=== PATIENT | female | born 1945 | race African-American/Black ===

== ENCOUNTER 2021-04-11 10:08 | Inpatient (IN) | payer MEDICARE ==
[2021-04-11] MEDS ORDERED: Cefepime 2 GM VIAL ONE (11:13)
[2021-04-11 11:23] LABS: Bilirubin Negative (Negative); Blood, Urine 3+ (Negative); Clarity Turbid (Clear); Glucose, Urine (Dipstick) Normal (Negative); Ketone, Urine Negative (Negative); Leukocyte Negative Leu/uL (Negative); Nitrite Negative (Negative); Protein, Urine (Dipstick) 300 mg/dL (Neg-Trace); RBC/HPF 0-3 HPF (0-3); Specific Gravity, Urine 1.019 (1.002-1.036); Squamous Epithelial 0-3 HPF (0-3); Urobilinogen Normal mg/dL (Less than 2); WBC/HPF None Seen HPF (0-3)
[2021-04-11 11:30] LABS: Bacteria/HPF Rare-Few HPF (None Seen); Renal Epithelial 0-3 HPF (None Seen)
[2021-04-11 11:41] LABS: Band 14 % (5-11); Lymphocytes 7 % (21-51); MDiff Complete? YES; Monocytes 2 % (0-10); Neutrophil 75 % (42-75); Platelet Morphology Comment Appears Adequate; RBC Morphology Normal; Reactive Lymphocytes 2 % (0-10)
[2021-04-11 11:49] LABS: Hemoglobin 13.4 g/dL (12.0-16.0); Mean Corpuscular HGB CONC 32.2 g/dL (32.0-36.0); Mean Corpuscular Hemoglobin 26.8 pg (27.0-31.0); Mean Corpuscular Volume 83.3 fL (78.0-98.0); Mean Platelet Volume 8.9 fL (7.4-10.4); Platelet Count 234 thou/uL (130-400); RBC Distribution Width 12.9 % (11.5-14.5); Red Blood Cell (RBC) Count 5.01 mill/uL (4.20-5.40); White Blood Cell (WBC) Count 14.2 thou/uL (4.8-10.8)
[2021-04-11 12:04] LABS: ALT (SGPT) 69 U/L (8-55); AST (SGOT) 287 U/L (5-34); Albumin 3.7 g/dL (3.4-4.8); Alkaline Phosphatase 93 U/L (40-110); Anion Gap 18 mmol/L (10-20); BUN (Urea Nitrogen) 24 mg/dL (9.8-20.1); Bilirubin, Total 0.7 mg/dL (0.2-1.2); Calc. Creatinine Clearance 0 mL/min (70-130); Calcium 8.7 mg/dL (7.8-10.44); Carbon Dioxide 20 mmol/L (23-31); Chloride 103 mmol/L (98-107); Globulin 4.9 g/dL (2.4-3.5); Glucose 167 mg/dL (83-110); Lipase 32 U/L (8-78); Potassium 3.8 mmol/L (3.5-5.1); Protein, Total 8.6 g/dL (5.8-8.1); Sodium 137 mmol/L (136-145)
[2021-04-11 12:10] LABS: CKMB 55.8 ng/mL (0-6.6)
[2021-04-11] MEDS ORDERED: Aspirin 325 MG TAB ONE (12:25)
[2021-04-11 12:32] LABS: SARS-CoV-2 NAA Rapid Test DETECTED (NotDetected)
[2021-04-11] MEDS ORDERED: Vancomycin 1.5 GRAM/300 ML BAG 1.5 GM in Premix Bag 1 BAG IVPB SCH (12:45)
[2021-04-11] MEDS ORDERED: Guaifenesin DM 100-10/5 ML UDCUP PO PRN (13:31)
[2021-04-11] MEDS ORDERED: Zolpidem Tartrate 5 MG TAB PO PRN (13:31)
[2021-04-11] MEDS ORDERED: hydrALAZINE 20 MG/ML VIAL SLOW IVP PRN (13:31)
[2021-04-11] MEDS ORDERED: Loperamide HCl 2 MG CAP PO PRN (13:31)
[2021-04-11] MEDS ORDERED: Benzonatate 100 MG CAP PO PRN (13:31)
[2021-04-11] MEDS ORDERED: Bisacodyl 10 MG SUPP PR PRN (13:31)
[2021-04-11] MEDS ORDERED: HYDROcodone/Acetaminophen 5/325 mg Tablet PO PRN (13:31)
[2021-04-11] MEDS ORDERED: Ondansetron PF 4 MG/2 ML Vial IVP PRN (13:31)
[2021-04-11] MEDS ORDERED: Sodium Chloride 0.65% Nasal 44 ML BOT EA NARE PRN (13:31)
[2021-04-11] MEDS ORDERED: Loratadine 10 MG TAB PO PRN (13:31)
[2021-04-11] MEDS ORDERED: Hydrocerin (Eucerin) Cream 120 gm Jar TOP PRN (13:31)
[2021-04-11] MEDS ORDERED: Senokot S 8.6-50 MG TAB PO PRN (13:31)
[2021-04-11] MEDS ORDERED: Artificial Tear Sol 15 ML BOT EA EYE PRN (13:31)
[2021-04-11] MEDS ORDERED: Ondansetron ODT 4 MG TAB PO PRN (13:31)
[2021-04-11] MEDS ORDERED: Cepastat Lozenges 1 LOZ PO PRN (13:31)
[2021-04-11] MEDS ORDERED: Calcium Carbonate 500 MG ChewTAB PO PRN (13:31)
[2021-04-11] MEDS ORDERED: Sodium Chloride 0.9% 1,000 ML IV SCH (13:45)
[2021-04-11 14:21] LABS: Lactic Acid 2.2 mmol/L (0.5-2.2)
[2021-04-11 18:14] LABS: Troponin I 0.044 ng/mL (< 0.028)
[2021-04-11 21:31] LABS: Troponin I 0.045 ng/mL (< 0.028)
[2021-04-12] MEDS: Clotrimazole 1% Cream 15 GM TUBE TOP SCH ×3 (00:19→22:37)
[2021-04-12] MEDS ORDERED: Cefepime 1 GM VIAL ONE ×2 (03:00→11:45)
[2021-04-12] MEDS: Cefepime 1 GM in Sodium Chloride 0.9% 100 ML IVPB SCH ×3 (03:05→23:55)
[2021-04-12 05:36] LABS: #Lymphocytes 1.7 thou/uL (1.20-3.40); #Monocytes 1.1 thou/uL (0.11-0.59); #Neutrophils 11.9 thou/uL (1.40-6.50); %Eosinophils 0.1 % (0.0-10.0); %Lymphocytes 11.2 % (21.0-51.0); %Monocytes 7.3 % (0.0-10.0); %Neutrophils 81.3 % (42.0-75.0); Hemoglobin 13.9 g/dL (12.0-16.0); Mean Corpuscular HGB CONC 30.9 g/dL (32.0-36.0); Mean Corpuscular Hemoglobin 25.9 pg (27.0-31.0); Mean Corpuscular Volume 83.7 fL (78.0-98.0); Mean Platelet Volume 8.3 fL (7.4-10.4); Platelet Count 263 thou/uL (130-400); Red Blood Cell (RBC) Count 5.37 mill/uL (4.20-5.40); White Blood Cell (WBC) Count 14.7 thou/uL (4.8-10.8)
[2021-04-12 05:52] LABS: Lactic Acid 2.1 mmol/L (0.5-2.2)
[2021-04-12 05:55] LABS: ALT (SGPT) 87 U/L (8-55); AST (SGOT) 339 U/L (5-34); Albumin 3.5 g/dL (3.4-4.8); Alkaline Phosphatase 87 U/L (40-110); Anion Gap 18 mmol/L (10-20); BUN (Urea Nitrogen) 21 mg/dL (9.8-20.1); Bilirubin, Total 0.6 mg/dL (0.2-1.2); Calc. Creatinine Clearance 0 mL/min (70-130); Calcium 9.1 mg/dL (7.8-10.44); Carbon Dioxide 18 mmol/L (23-31); Chloride 110 mmol/L (98-107); Globulin 4.3 g/dL (2.4-3.5); Glucose 156 mg/dL (83-110); Potassium 3.5 mmol/L (3.5-5.1); Protein, Total 7.8 g/dL (5.8-8.1); Sodium 142 mmol/L (136-145)
[2021-04-12] MEDS ORDERED: Enoxaparin Sodium 40 MG/0.4 ML SYRINGE ONE (08:44)
[2021-04-12] MEDS ORDERED: Ascorbic Acid 500 mg Chewable Tablet ONE (09:21)
[2021-04-12] MEDS ORDERED: Cholecalciferol 1,000 UNITS (25 MCG) TAB ONE (09:21)
[2021-04-12] MEDS ORDERED: Zinc Sulfate 220 MG CAP ONE (09:21)
[2021-04-12] MEDS: Cholecalciferol 1,000 UNITS (25 MCG) TAB PO SCH (09:23)
[2021-04-12] MEDS: Ascorbic Acid 500 mg Chewable Tablet PO SCH (09:23)
[2021-04-12] MEDS: Zinc Sulfate 220 MG CAP PO SCH (09:23)
[2021-04-12] MEDS: Saccharomyces boulardii 250 MG CAP PO SCH (09:23)
[2021-04-12] MEDS: Enoxaparin Sodium 40 MG/0.4 ML SYRINGE SC SCH (09:23)
[2021-04-12] MEDS ORDERED: Vancomycin HCl 1 GM in Premix Bag 1 BAG IVPB SCH (13:00)
[2021-04-12] MEDS ORDERED: VANCOMYCIN 1.25 GM/250 ML BAG 1.25 GM in Premix Bag 1 BAG IVPB SCH (15:00)
[2021-04-12 15:51] VITALS: BMI 45.1
[2021-04-13] MEDS ORDERED: Clotrimazole 1 % Cream 30 GM TUBE TOP SCH (00:30)
[2021-04-13 08:24] LABS: Hemoglobin 15.3 g/dL (12.0-16.0); Mean Corpuscular HGB CONC 32.7 g/dL (32.0-36.0); Mean Corpuscular Hemoglobin 27.4 pg (27.0-31.0); Mean Corpuscular Volume 83.9 fL (78.0-98.0); Mean Platelet Volume 8.6 fL (7.4-10.4); Platelet Count 158 thou/uL (130-400); Red Blood Cell (RBC) Count 5.58 mill/uL (4.20-5.40); White Blood Cell (WBC) Count 26.2 thou/uL (4.8-10.8)
[2021-04-13 08:37] LABS: Anion Gap 20 mmol/L (10-20); BUN (Urea Nitrogen) 23 mg/dL (9.8-20.1); Calc. Creatinine Clearance 84 mL/min (70-130); Calcium 9.2 mg/dL (7.8-10.44); Carbon Dioxide 16 mmol/L (23-31); Chloride 115 mmol/L (98-107); Glucose 149 mg/dL (83-110); Potassium 3.7 mmol/L (3.5-5.1); Sodium 147 mmol/L (136-145)
[2021-04-13] MEDS: Cefepime 1 GM in Sodium Chloride 0.9% 100 ML IVPB SCH ×2 (08:50→22:22)
[2021-04-13] MEDS: Ascorbic Acid 500 mg Chewable Tablet PO SCH (08:51)
[2021-04-13] MEDS: Cholecalciferol 1,000 UNITS (25 MCG) TAB PO SCH (08:51)
[2021-04-13] MEDS: Zinc Sulfate 220 MG CAP PO SCH (08:51)
[2021-04-13] MEDS: Clotrimazole 1 % Cream 30 GM TUBE TOP SCH ×2 (08:51→21:33)
[2021-04-13] MEDS: Enoxaparin Sodium 40 MG/0.4 ML SYRINGE SC SCH (08:51)
[2021-04-13] MEDS: Saccharomyces boulardii 250 MG CAP PO SCH (08:51)
[2021-04-13 08:53] LABS: Band 8 % (5-11); Lymphocytes 11 % (21-51); MDiff Complete? YES; Monocytes 7 % (0-10); Neutrophil 74 % (42-75); Platelet Morphology Comment Appears Adequate; RBC Morphology Normal; Vacuoles SLIGHT
[2021-04-13] MEDS ORDERED: Iopamidol 370 76% 100 ML VIAL ONE (10:15)
[2021-04-13] MEDS: Sodium Chloride 0.45% 1,000 ML IV SCH ×2 (12:31→22:27)
[2021-04-13 16:32] LABS: Vancomycin, Random 10.9 ug/mL (See Comment)
[2021-04-13] MEDS: Sodium Bicarbonate Tab 325 MG TAB PO SCH (21:33)
[2021-04-13] MEDS: Vancomycin 1.5 GRAM/300 ML BAG 1.5 GM in Premix Bag 1 BAG IVPB SCH (21:33)
[2021-04-14 06:03] LABS: ALT (SGPT) 89 U/L (8-55); AST (SGOT) 261 U/L (5-34); Albumin 3.2 g/dL (3.4-4.8); Alkaline Phosphatase 76 U/L (40-110); Anion Gap 18 mmol/L (10-20); BUN (Urea Nitrogen) 21 mg/dL (9.8-20.1); Bilirubin, Total 0.8 mg/dL (0.2-1.2); Calc. Creatinine Clearance 88 mL/min (70-130); Calcium 9.1 mg/dL (7.8-10.44); Carbon Dioxide 17 mmol/L (23-31); Chloride 120 mmol/L (98-107); Globulin 4.1 g/dL (2.4-3.5); Glucose 158 mg/dL (83-110); Potassium 3.6 mmol/L (3.5-5.1); Protein, Total 7.3 g/dL (5.8-8.1); Sodium 151 mmol/L (136-145)
[2021-04-14 07:04] LABS: Hemoglobin 12.6 g/dL (12.0-16.0); Mean Corpuscular Hemoglobin 26.7 pg (27.0-31.0); Mean Corpuscular Volume 83.6 fL (78.0-98.0); Mean Platelet Volume 8.6 fL (7.4-10.4); Platelet Count 321 thou/uL (130-400); RBC Distribution Width 12.9 % (11.5-14.5); Red Blood Cell (RBC) Count 4.72 mill/uL (4.20-5.40); White Blood Cell (WBC) Count 19.1 thou/uL (4.8-10.8)
[2021-04-14 07:50] LABS: Band 5 % (5-11); Lymphocytes 11 % (21-51); MDiff Complete? YES; Monocytes 2 % (0-10); Neutrophil 82 % (42-75); Platelet Morphology Comment Appears Adequate; RBC Morphology Normal
[2021-04-14 09:12] LABS: Lactic Acid 2.3 mmol/L (0.5-2.2)
[2021-04-14 09:16] LABS: CRP (Inflammatory) 10.13 mg/dL (= or < 0.5)
[2021-04-14] MEDS: Enoxaparin Sodium 40 MG/0.4 ML SYRINGE SC SCH ×2 (10:02→21:30)
[2021-04-14] MEDS: Saccharomyces boulardii 250 MG CAP PO SCH ×2 (10:03→11:29)
[2021-04-14] MEDS: Dextrose 5% in Water 1,000 ML IV SCH (10:03)
[2021-04-14] MEDS: Zinc Sulfate 220 MG CAP PO SCH ×2 (10:03→11:29)
[2021-04-14] MEDS: Cholecalciferol 1,000 UNITS (25 MCG) TAB PO SCH ×2 (10:03→11:28)
[2021-04-14] MEDS: Ascorbic Acid 500 mg Chewable Tablet PO SCH ×2 (10:03→11:28)
[2021-04-14] MEDS: Sodium Bicarbonate Tab 325 MG TAB PO SCH ×3 (10:03→21:31)
[2021-04-14] MEDS: Clotrimazole 1 % Cream 30 GM TUBE TOP SCH ×2 (10:04→21:34)
[2021-04-14] MEDS: Cefepime 1 GM in Sodium Chloride 0.9% 100 ML IVPB SCH (10:08)
[2021-04-14] MEDS ORDERED: Nystatin Powder 15 GM BOT TOP PRN (12:41)
[2021-04-14] MEDS: metroNIDAZOLE 500 MG in Premix Bag 1 BAG IVPB SCH ×2 (15:16→23:03)
[2021-04-14] MEDS: Vancomycin 1.5 GRAM/300 ML BAG 1.5 GM in Premix Bag 1 BAG IVPB SCH (21:31)
[2021-04-15] MEDS: Cefepime 1 GM in Sodium Chloride 0.9% 100 ML IVPB SCH ×2 (01:35→11:27)
[2021-04-15] MEDS: metroNIDAZOLE 500 MG in Premix Bag 1 BAG IVPB SCH ×3 (06:37→20:34)
[2021-04-15] MEDS: Dextrose 5% in Water 1,000 ML IV SCH ×2 (06:38→11:28)
[2021-04-15] MEDS: Cholecalciferol 1,000 UNITS (25 MCG) TAB PO SCH (11:23)
[2021-04-15] MEDS: Ascorbic Acid 500 mg Chewable Tablet PO SCH (11:23)
[2021-04-15] MEDS: Metoprolol Tartrate 25 MG TAB PO SCH ×2 (11:25→20:33)
[2021-04-15] MEDS: Saccharomyces boulardii 250 MG CAP PO SCH (11:26)
[2021-04-15] MEDS: Zinc Sulfate 220 MG CAP PO SCH (11:26)
[2021-04-15] MEDS: Sodium Bicarbonate Tab 325 MG TAB PO SCH ×2 (11:26→20:33)
[2021-04-15] MEDS: Clotrimazole 1 % Cream 30 GM TUBE TOP SCH ×2 (11:27→20:31)
[2021-04-15] MEDS: Enoxaparin Sodium 40 MG/0.4 ML SYRINGE SC SCH ×2 (11:27→20:32)
[2021-04-15] MEDS: diphenhydrAMINE 50 MG/ML VIAL IVP PRN (11:29)
[2021-04-15] MEDS: DorzolamidE/Timolol 2%/0.5% Ophth Soln 10 ml Bottle EA EYE SCH ×2 (11:31→20:31)
[2021-04-15 12:07] LABS: #Monocytes 0.6 thou/uL (0.11-0.59); #Neutrophils 13.4 thou/uL (1.40-6.50); %Basophils 0.1 % (0.0-1.0); %Eosinophils 0.2 % (0.0-10.0); %Lymphocytes 12.4 % (21.0-51.0); %Monocytes 3.7 % (0.0-10.0); %Neutrophils 83.5 % (42.0-75.0); Hemoglobin 12.9 g/dL (12.0-16.0); Mean Corpuscular HGB CONC 32.8 g/dL (32.0-36.0); Mean Corpuscular Hemoglobin 27.7 pg (27.0-31.0); Mean Corpuscular Volume 84.5 fL (78.0-98.0); Mean Platelet Volume 8.1 fL (7.4-10.4); Platelet Count 298 thou/uL (130-400); Red Blood Cell (RBC) Count 4.64 mill/uL (4.20-5.40)
[2021-04-15 12:22] LABS: Anion Gap 17 mmol/L (10-20); BUN (Urea Nitrogen) 16 mg/dL (9.8-20.1); Calc. Creatinine Clearance 107 mL/min (70-130); Calcium 9.4 mg/dL (7.8-10.44); Carbon Dioxide 17 mmol/L (23-31); Chloride 121 mmol/L (98-107); Glucose 143 mg/dL (83-110); Potassium 3.3 mmol/L (3.5-5.1); Sodium 152 mmol/L (136-145)
[2021-04-15] MEDS: Latanoprost 0.005% Ophth Soln 2.5 ml Bottle EA EYE SCH (20:32)
[2021-04-15] MEDS: Gabapentin 300 MG CAP PO SCH (20:33)
[2021-04-15 20:54] LABS: Vancomycin, Trough 12.5 ug/mL
[2021-04-15] MEDS: Atorvastatin Calcium 20 MG TAB PO SCH (21:38)
[2021-04-15] MEDS: Vancomycin 1.5 GRAM/300 ML BAG 1.5 GM in Premix Bag 1 BAG IVPB SCH (22:28)
[2021-04-16] MEDS: Cefepime 1 GM in Sodium Chloride 0.9% 100 ML IVPB SCH ×3 (01:53→15:44)
[2021-04-16 05:19] LABS: #Lymphocytes 1.7 thou/uL (1.20-3.40); #Monocytes 0.5 thou/uL (0.11-0.59); #Neutrophils 11.4 thou/uL (1.40-6.50); %Basophils 0.1 % (0.0-1.0); %Eosinophils 0.3 % (0.0-10.0); %Lymphocytes 12.3 % (21.0-51.0); %Monocytes 3.3 % (0.0-10.0); Hemoglobin 12.1 g/dL (12.0-16.0); Mean Corpuscular HGB CONC 32.9 g/dL (32.0-36.0); Mean Corpuscular Hemoglobin 27.9 pg (27.0-31.0); Mean Corpuscular Volume 84.6 fL (78.0-98.0); Mean Platelet Volume 8.4 fL (7.4-10.4); Platelet Count 273 thou/uL (130-400); RBC Distribution Width 13.1 % (11.5-14.5); Red Blood Cell (RBC) Count 4.35 mill/uL (4.20-5.40); White Blood Cell (WBC) Count 13.6 thou/uL (4.8-10.8)
[2021-04-16 05:43] LABS: Anion Gap 14 mmol/L (10-20); BUN (Urea Nitrogen) 18 mg/dL (9.8-20.1); Calc. Creatinine Clearance 108 mL/min (70-130); Calcium 9.2 mg/dL (7.8-10.44); Carbon Dioxide 19 mmol/L (23-31); Chloride 122 mmol/L (98-107); Glucose 170 mg/dL (83-110); Potassium 3.7 mmol/L (3.5-5.1); Sodium 151 mmol/L (136-145)
[2021-04-16] MEDS: metroNIDAZOLE 500 MG in Premix Bag 1 BAG IVPB SCH ×3 (06:12→19:48)
[2021-04-16] MEDS: Enoxaparin Sodium 40 MG/0.4 ML SYRINGE SC SCH ×2 (10:05→19:48)
[2021-04-16] MEDS: Cholecalciferol 1,000 UNITS (25 MCG) TAB PO SCH ×2 (10:07→13:07)
[2021-04-16] MEDS: Ascorbic Acid 500 mg Chewable Tablet PO SCH ×2 (10:07→13:07)
[2021-04-16] MEDS: Clotrimazole 1 % Cream 30 GM TUBE TOP SCH ×2 (10:14→19:49)
[2021-04-16] MEDS: DorzolamidE/Timolol 2%/0.5% Ophth Soln 10 ml Bottle EA EYE SCH ×2 (10:15→19:49)
[2021-04-16] MEDS: diphenhydrAMINE 50 MG/ML VIAL IVP PRN (10:31)
[2021-04-16] MEDS: Dextrose 5% in Water 1,000 ML IV SCH (12:07)
[2021-04-16] MEDS: Metoprolol Tartrate 25 MG TAB PO SCH ×2 (12:55→19:47)
[2021-04-16] MEDS: Saccharomyces boulardii 250 MG CAP PO SCH (12:56)
[2021-04-16] MEDS: Zinc Sulfate 220 MG CAP PO SCH (12:56)
[2021-04-16] MEDS: Sodium Bicarbonate Tab 325 MG TAB PO SCH ×2 (12:56→19:47)
[2021-04-16] MEDS: Vancomycin HCl 750 MG in Sodium Chloride 0.9% 250 ML 250 ML IVPB SCH (17:18)
[2021-04-16] MEDS: Gabapentin 300 MG CAP PO SCH (19:47)
[2021-04-16] MEDS: Atorvastatin Calcium 20 MG TAB PO SCH (19:47)
[2021-04-16] MEDS: Latanoprost 0.005% Ophth Soln 2.5 ml Bottle EA EYE SCH (19:48)
[2021-04-16] MEDS ORDERED: Albuterol Sulfate 2.5 mg/3 ml Neb EZPAP PRN (20:55)
[2021-04-16] MEDS ORDERED: Lorazepam 2 MG/ML VIAL SLOW IVP SCH (21:00)
[2021-04-16] MEDS: Albuterol 200 PUFF (6.7GM INHALER) INH PRN (23:16)
[2021-04-17] MEDS: Dextrose 5% in Water 1,000 ML IV SCH ×3 (01:55→21:29)
[2021-04-17] MEDS: Cefepime 1 GM in Sodium Chloride 0.9% 100 ML IVPB SCH ×2 (02:59→16:36)
[2021-04-17] MEDS: metroNIDAZOLE 500 MG in Premix Bag 1 BAG IVPB SCH ×3 (05:07→21:51)
[2021-04-17] MEDS: Vancomycin HCl 750 MG in Sodium Chloride 0.9% 250 ML 250 ML IVPB SCH ×2 (06:24→17:44)
[2021-04-17] MEDS: Enoxaparin Sodium 40 MG/0.4 ML SYRINGE SC SCH ×2 (09:58→21:51)
[2021-04-17] MEDS: DorzolamidE/Timolol 2%/0.5% Ophth Soln 10 ml Bottle EA EYE SCH ×2 (09:59→21:52)
[2021-04-17] MEDS: Clotrimazole 1 % Cream 30 GM TUBE TOP SCH ×2 (10:00→21:52)
[2021-04-17 10:07] LABS: #Lymphocytes 2.1 thou/uL (1.20-3.40); #Monocytes 0.5 thou/uL (0.11-0.59); #Neutrophils 15.5 thou/uL (1.40-6.50); %Basophils 0.3 % (0.0-1.0); %Eosinophils 0.3 % (0.0-10.0); %Lymphocytes 11.8 % (21.0-51.0); %Monocytes 2.6 % (0.0-10.0); %Neutrophils 85.1 % (42.0-75.0); Mean Corpuscular HGB CONC 30.5 g/dL (32.0-36.0); Mean Corpuscular Hemoglobin 26.1 pg (27.0-31.0); Mean Corpuscular Volume 85.7 fL (78.0-98.0); Mean Platelet Volume 8.5 fL (7.4-10.4); Platelet Count 285 thou/uL (130-400); RBC Distribution Width 13.4 % (11.5-14.5); White Blood Cell (WBC) Count 18.2 thou/uL (4.8-10.8)
[2021-04-17 10:38] LABS: Lactic Acid 1.9 mmol/L (0.5-2.2)
[2021-04-17 10:39] LABS: Phosphorus 2.4 mg/dL (2.3-4.7)
[2021-04-17 10:41] LABS: ALT (SGPT) 86 U/L (8-55); AST (SGOT) 136 U/L (5-34); Albumin 2.8 g/dL (3.4-4.8); Alkaline Phosphatase 68 U/L (40-110); Anion Gap 11 mmol/L (10-20); BUN (Urea Nitrogen) 22 mg/dL (9.8-20.1); Bilirubin, Total 0.9 mg/dL (0.2-1.2); CK (CPK) 1967 U/L (29-168); Calc. Creatinine Clearance 96 mL/min (70-130); Calcium 8.4 mg/dL (7.8-10.44); Carbon Dioxide 20 mmol/L (23-31); Chloride 121 mmol/L (98-107); Globulin 3.1 g/dL (2.4-3.5); Glucose 185 mg/dL (83-110); Potassium 3.7 mmol/L (3.5-5.1); Protein, Total 5.9 g/dL (5.8-8.1); Sodium 148 mmol/L (136-145)
[2021-04-17] MEDS: Ascorbic Acid 500 mg Chewable Tablet PO SCH (12:11)
[2021-04-17] MEDS: Cholecalciferol 1,000 UNITS (25 MCG) TAB PO SCH (12:11)
[2021-04-17] MEDS: Metoprolol Tartrate 25 MG TAB PO SCH ×2 (12:11→21:30)
[2021-04-17] MEDS: Saccharomyces boulardii 250 MG CAP PO SCH (12:12)
[2021-04-17] MEDS: Sodium Bicarbonate Tab 325 MG TAB PO SCH ×2 (12:12→21:30)
[2021-04-17] MEDS: Zinc Sulfate 220 MG CAP PO SCH (12:13)
[2021-04-17] MEDS: Atorvastatin Calcium 20 MG TAB PO SCH (21:28)
[2021-04-17] MEDS: Gabapentin 300 MG CAP PO SCH (21:29)
[2021-04-17] MEDS: Latanoprost 0.005% Ophth Soln 2.5 ml Bottle EA EYE SCH (21:53)
[2021-04-18] MEDS: Cefepime 1 GM in Sodium Chloride 0.9% 100 ML IVPB SCH ×2 (02:41→14:31)
[2021-04-18] MEDS: metroNIDAZOLE 500 MG in Premix Bag 1 BAG IVPB SCH ×2 (04:24→14:31)
[2021-04-18] MEDS: Vancomycin HCl 750 MG in Sodium Chloride 0.9% 250 ML 250 ML IVPB SCH ×2 (05:45→20:30)
[2021-04-18 07:30] LABS: Hemoglobin 10.6 g/dL (12.0-16.0); Mean Corpuscular HGB CONC 31.7 g/dL (32.0-36.0); Mean Corpuscular Hemoglobin 27.2 pg (27.0-31.0); Mean Platelet Volume 8.3 fL (7.4-10.4); Platelet Count 286 thou/uL (130-400); RBC Distribution Width 13.6 % (11.5-14.5); Red Blood Cell (RBC) Count 3.89 mill/uL (4.20-5.40); White Blood Cell (WBC) Count 21.3 thou/uL (4.8-10.8)
[2021-04-18 07:44] LABS: Anion Gap 8 mmol/L (10-20); BUN (Urea Nitrogen) 20 mg/dL (9.8-20.1); Calc. Creatinine Clearance 109 mL/min (70-130); Calcium 8.7 mg/dL (7.8-10.44); Carbon Dioxide 23 mmol/L (23-31); Chloride 121 mmol/L (98-107); Glucose 145 mg/dL (83-110); Potassium 3.3 mmol/L (3.5-5.1); Sodium 149 mmol/L (136-145)
[2021-04-18] MEDS: Enoxaparin Sodium 40 MG/0.4 ML SYRINGE SC SCH ×2 (09:01→20:29)
[2021-04-18] MEDS: Dextrose 5% in Water 1,000 ML IV SCH (09:02)
[2021-04-18] MEDS: Metoprolol Tartrate 25 MG TAB PO SCH (09:09)
[2021-04-18] MEDS: DorzolamidE/Timolol 2%/0.5% Ophth Soln 10 ml Bottle EA EYE SCH ×2 (09:09→21:05)
[2021-04-18] MEDS: Cholecalciferol 1,000 UNITS (25 MCG) TAB PO SCH (09:09)
[2021-04-18] MEDS: Clotrimazole 1 % Cream 30 GM TUBE TOP SCH ×2 (09:09→21:05)
[2021-04-18] MEDS: Ascorbic Acid 500 mg Chewable Tablet PO SCH (09:09)
[2021-04-18] MEDS: Sodium Bicarbonate Tab 325 MG TAB PO SCH (09:10)
[2021-04-18] MEDS: Saccharomyces boulardii 250 MG CAP PO SCH (09:10)
[2021-04-18] MEDS: Zinc Sulfate 220 MG CAP PO SCH (09:10)
[2021-04-18 09:17] LABS: Band 7 % (5-11); Eosinophils 1 % (0-10); Lymphocytes 19 % (21-51); MDiff Complete? YES; Monocytes 8 % (0-10); Neutrophil 65 % (42-75); Platelet Morphology Comment Appears Adequate; Polychromasia SLIGHT = 2-3 cells (100X) (0-2/hpf)
[2021-04-18] MEDS ORDERED: Iopamidol-370 76% 500 ML 1 ML ONE (09:30)
[2021-04-18] MEDS ORDERED: Furosemide 40 MG/4 ML VIAL SLOW IVP SCH (14:30)
[2021-04-18 18:57] LABS: Bacteria/HPF None Seen HPF (None Seen); Bilirubin Negative (Negative); Blood, Urine 3+ (Negative); Clarity Clear (Clear); Glucose, Urine (Dipstick) Normal (Negative); Ketone, Urine Negative (Negative); Leukocyte 75 Leu/uL (Negative); Nitrite Negative (Negative); Protein, Urine (Dipstick) 10 mg/dL (Neg-Trace); RBC/HPF Greater than 50 HPF (0-3); Specific Gravity, Urine 1.032 (1.002-1.036); Squamous Epithelial None Seen HPF (0-3); Urobilinogen Normal mg/dL (Less than 2); pH, Urine 5.5 (5.0-9.0)
[2021-04-18 18:59] LABS: Urine Culture Reflex Yes Yes
[2021-04-18] MEDS: Gabapentin 300 MG CAP PO SCH (21:17)
[2021-04-18] MEDS: diphenhydrAMINE 50 MG/ML VIAL IVP PRN (22:45)
[2021-04-19] MEDS: metroNIDAZOLE 500 MG in Premix Bag 1 BAG IVPB SCH ×4 (00:13→22:30)
[2021-04-19] MEDS: Latanoprost 0.005% Ophth Soln 2.5 ml Bottle EA EYE SCH ×2 (00:17→20:27)
[2021-04-19] MEDS: Dextrose 5% in Water 1,000 ML IV SCH ×2 (03:15→03:30)
[2021-04-19] MEDS: Atorvastatin Calcium 20 MG TAB PO SCH ×2 (03:16→20:25)
[2021-04-19] MEDS: Metoprolol Tartrate 25 MG TAB PO SCH ×3 (03:17→20:25)
[2021-04-19] MEDS: Sodium Bicarbonate Tab 325 MG TAB PO SCH ×3 (03:17→20:25)
[2021-04-19] MEDS: Cefepime 1 GM in Sodium Chloride 0.9% 100 ML IVPB SCH ×2 (03:28→14:12)
[2021-04-19 08:05] LABS: ALT (SGPT) 64 U/L (8-55); AST (SGOT) 84 U/L (5-34); Albumin 2.4 g/dL (3.4-4.8); Alkaline Phosphatase 75 U/L (40-110); Anion Gap 15 mmol/L (10-20); BUN (Urea Nitrogen) 15 mg/dL (9.8-20.1); Bilirubin, Total 0.7 mg/dL (0.2-1.2); Calc. Creatinine Clearance 106 mL/min (70-130); Calcium 8.4 mg/dL (7.8-10.44); Carbon Dioxide 15 mmol/L (23-31); Chloride 124 mmol/L (98-107); Globulin 3.9 g/dL (2.4-3.5); Glucose 142 mg/dL (83-110); Protein, Total 6.3 g/dL (5.8-8.1); Sodium 150 mmol/L (136-145)
[2021-04-19] MEDS ORDERED: Vancomycin HCl 750 MG in Sodium Chloride 0.9% 250 ML 250 ML IVPB SCH (09:00)
[2021-04-19 10:05] LABS: Hemoglobin 9.6 g/dL (12.0-16.0); Mean Corpuscular HGB CONC 33.2 g/dL (32.0-36.0); Mean Corpuscular Hemoglobin 28.6 pg (27.0-31.0); Mean Corpuscular Volume 86.2 fL (78.0-98.0); Mean Platelet Volume 8.5 fL (7.4-10.4); Platelet Count 281 thou/uL (130-400); RBC Distribution Width 14.1 % (11.5-14.5); Red Blood Cell (RBC) Count 3.36 mill/uL (4.20-5.40); White Blood Cell (WBC) Count 18.6 thou/uL (4.8-10.8)
[2021-04-19 10:18] LABS: Vancomycin, Trough 18.4 ug/mL
[2021-04-19 10:23] LABS: #Eosinphils 0.1 thou/uL (0.0-0.7); #Lymphocytes 1.9 thou/uL (1.20-3.40); #Monocytes 0.9 thou/uL (0.11-0.59); #Neutrophils 15.7 thou/uL (1.40-6.50); %Basophils 0.1 % (0.0-1.0); %Eosinophils 0.4 % (0.0-10.0); %Lymphocytes 10.1 % (21.0-51.0); %Neutrophils 84.4 % (42.0-75.0); Band 10 % (5-11); Burr Cells SLIGHT = 2-5 cells (100X) (0-1/hpf); Lymphocytes 15 % (21-51); MDiff Complete? YES; Monocytes 5 % (0-10); Neutrophil 69 % (42-75); Platelet Morphology Comment Appears Adequate; Polychromasia SLIGHT = 2-3 cells (100X) (0-2/hpf); Reactive Lymphocytes 1 % (0-10)
[2021-04-19] MEDS: Ascorbic Acid 500 mg Chewable Tablet PO SCH (11:39)
[2021-04-19] MEDS: Cholecalciferol 1,000 UNITS (25 MCG) TAB PO SCH (11:39)
[2021-04-19] MEDS: Saccharomyces boulardii 250 MG CAP PO SCH (11:40)
[2021-04-19] MEDS: Zinc Sulfate 220 MG CAP PO SCH (11:40)
[2021-04-19] MEDS: DorzolamidE/Timolol 2%/0.5% Ophth Soln 10 ml Bottle EA EYE SCH ×2 (11:59→20:26)
[2021-04-19] MEDS: Clotrimazole 1 % Cream 30 GM TUBE TOP SCH ×2 (11:59→20:26)
[2021-04-19] MEDS: Enoxaparin Sodium 40 MG/0.4 ML SYRINGE SC SCH ×2 (11:59→20:24)
[2021-04-19] MEDS: Vancomycin HCl 750 MG in Sodium Chloride 0.9% 250 ML 250 ML IVPB SCH ×2 (11:59→23:12)
[2021-04-19] MEDS ORDERED: Dextrose 5% in Water 1,000 ML IV SCH (15:09)
[2021-04-19 19:08] LABS: Anion Gap 10 mmol/L (10-20); BUN (Urea Nitrogen) 14 mg/dL (9.8-20.1); CK (CPK) 470 U/L (29-168); Calc. Creatinine Clearance 108 mL/min (70-130); Calcium 8.6 mg/dL (7.8-10.44); Carbon Dioxide 22 mmol/L (23-31); Chloride 122 mmol/L (98-107); Glucose 162 mg/dL (83-110); Potassium 3.1 mmol/L (3.5-5.1); Sodium 151 mmol/L (136-145)
[2021-04-19] MEDS: Gabapentin 300 MG CAP PO SCH (20:25)
[2021-04-19] MEDS ORDERED: Potassium Phosphate 30 MMOL in Sodium Chloride 0.9% 250 ML 250 ML IVPB SCH (22:00)
[2021-04-20 00:07] LABS: Anion Gap 11 mmol/L (10-20); BUN (Urea Nitrogen) 14 mg/dL (9.8-20.1); Calc. Creatinine Clearance 112 mL/min (70-130); Calcium 8.5 mg/dL (7.8-10.44); Carbon Dioxide 21 mmol/L (23-31); Chloride 118 mmol/L (98-107); Glucose 145 mg/dL (83-110); Potassium 3.4 mmol/L (3.5-5.1); Sodium 147 mmol/L (136-145)
[2021-04-20] MEDS: diphenhydrAMINE 50 MG/ML VIAL IVP PRN (00:57)
[2021-04-20] MEDS: Dextrose 5% in Water 1,000 ML IV SCH ×3 (02:03→19:43)
[2021-04-20] MEDS: Cefepime 1 GM in Sodium Chloride 0.9% 100 ML IVPB SCH ×2 (02:23→16:16)
[2021-04-20] MEDS: metroNIDAZOLE 500 MG in Premix Bag 1 BAG IVPB SCH ×3 (04:45→20:24)
[2021-04-20] MEDS: Albuterol 200 PUFF (6.7GM INHALER) INH PRN (05:15)
[2021-04-20 06:19] LABS: #Eosinphils 0.2 thou/uL (0.0-0.7); #Lymphocytes 2.1 thou/uL (1.20-3.40); #Neutrophils 13.5 thou/uL (1.40-6.50); %Basophils 0.1 % (0.0-1.0); %Eosinophils 1.1 % (0.0-10.0); %Lymphocytes 12.7 % (21.0-51.0); %Monocytes 5.6 % (0.0-10.0); %Neutrophils 80.5 % (42.0-75.0); Hemoglobin 9.6 g/dL (12.0-16.0); Mean Corpuscular HGB CONC 32.5 g/dL (32.0-36.0); Mean Corpuscular Hemoglobin 27.7 pg (27.0-31.0); Mean Corpuscular Volume 85.3 fL (78.0-98.0); Mean Platelet Volume 8.1 fL (7.4-10.4); Platelet Count 262 thou/uL (130-400); Red Blood Cell (RBC) Count 3.45 mill/uL (4.20-5.40); White Blood Cell (WBC) Count 16.8 thou/uL (4.8-10.8)
[2021-04-20 06:31] LABS: Phosphorus 2.9 mg/dL (2.3-4.7)
[2021-04-20 06:47] LABS: AST (SGOT) 47 U/L (5-34); Albumin 2.3 g/dL (3.4-4.8); Bilirubin, Total 0.5 mg/dL (0.2-1.2); Calcium 7.6 mg/dL (7.8-10.44); Chloride 118 mmol/L (98-107); Globulin 2.7 g/dL (2.4-3.5); Glucose 177 mg/dL (83-110); Sodium 145 mmol/L (136-145)
[2021-04-20 06:48] LABS: Anion Gap 9 mmol/L (10-20); Carbon Dioxide 21 mmol/L (23-31)
[2021-04-20 06:50] LABS: Alkaline Phosphatase 54 U/L (40-110); Calc. Creatinine Clearance 112 mL/min (70-130)
[2021-04-20 06:51] LABS: BUN (Urea Nitrogen) 13 mg/dL (9.8-20.1)
[2021-04-20 06:52] LABS: Magnesium 1.8 mg/dL (1.6-2.6)
[2021-04-20 06:53] LABS: ALT (SGPT) 51 U/L (8-55)
[2021-04-20] MEDS ORDERED: Potassium Phosphate 30 MMOL in Sodium Chloride 0.9% 250 ML 250 ML IVPB SCH (08:00)
[2021-04-20] MEDS: Cholecalciferol 1,000 UNITS (25 MCG) TAB PO SCH (08:54)
[2021-04-20] MEDS: Clotrimazole 1 % Cream 30 GM TUBE TOP SCH ×2 (08:54→20:21)
[2021-04-20] MEDS: Ascorbic Acid 500 mg Chewable Tablet PO SCH ×2 (08:54→08:55)
[2021-04-20] MEDS: DorzolamidE/Timolol 2%/0.5% Ophth Soln 10 ml Bottle EA EYE SCH ×2 (08:54→20:21)
[2021-04-20] MEDS: Metolazone 5 MG TAB PO SCH (08:55)
[2021-04-20] MEDS: Spironolactone 25 MG TAB PO SCH (08:55)
[2021-04-20] MEDS: Metoprolol Tartrate 25 MG TAB PO SCH ×2 (08:55→20:21)
[2021-04-20] MEDS: Saccharomyces boulardii 250 MG CAP PO SCH (08:56)
[2021-04-20] MEDS: Sodium Bicarbonate Tab 325 MG TAB PO SCH ×2 (08:56→20:21)
[2021-04-20] MEDS: Zinc Sulfate 220 MG CAP PO SCH (08:56)
[2021-04-20] MEDS: Enoxaparin Sodium 40 MG/0.4 ML SYRINGE SC SCH ×2 (08:56→20:21)
[2021-04-20] MEDS: Vancomycin HCl 750 MG in Sodium Chloride 0.9% 250 ML 250 ML IVPB SCH (11:57)
[2021-04-20] MEDS ORDERED: Albumin 25% 25 GM/100 ML BOT IVPB SCH (12:30)
[2021-04-20] MEDS: Potassium Bicarbonate/Cit Ac 20 MEQ TAB PER TUBE SCH (17:24)
[2021-04-20] MEDS: Atorvastatin Calcium 20 MG TAB PO SCH (20:21)
[2021-04-20] MEDS: Latanoprost 0.005% Ophth Soln 2.5 ml Bottle EA EYE SCH (20:21)
[2021-04-20] MEDS: Gabapentin 300 MG CAP PO SCH (20:22)
[2021-04-20 23:57] LABS: Vancomycin, Trough 19.7 ug/mL
[2021-04-21] MEDS: Potassium Bicarbonate/Cit Ac 20 MEQ TAB PER TUBE SCH ×4 (00:55→17:08)
[2021-04-21] MEDS: Vancomycin HCl 750 MG in Sodium Chloride 0.9% 250 ML 250 ML IVPB SCH ×2 (00:55→11:27)
[2021-04-21] MEDS: Cefepime 1 GM in Sodium Chloride 0.9% 100 ML IVPB SCH ×2 (03:18→14:00)
[2021-04-21] MEDS: metroNIDAZOLE 500 MG in Premix Bag 1 BAG IVPB SCH ×3 (04:28→22:08)
[2021-04-21] MEDS: Saccharomyces boulardii 250 MG CAP PO SCH (08:04)
[2021-04-21] MEDS: Sodium Bicarbonate Tab 325 MG TAB PO SCH ×2 (08:04→20:24)
[2021-04-21] MEDS: Spironolactone 25 MG TAB PO SCH (08:04)
[2021-04-21] MEDS: Enoxaparin Sodium 40 MG/0.4 ML SYRINGE SC SCH ×2 (08:04→20:24)
[2021-04-21] MEDS: Cholecalciferol 1,000 UNITS (25 MCG) TAB PO SCH (08:04)
[2021-04-21] MEDS: Zinc Sulfate 220 MG CAP PO SCH (08:04)
[2021-04-21] MEDS: Metolazone 5 MG TAB PO SCH (08:05)
[2021-04-21] MEDS: Metoprolol Tartrate 25 MG TAB PO SCH ×2 (08:05→20:24)
[2021-04-21] MEDS: Ascorbic Acid 500 mg Chewable Tablet PO SCH (08:05)
[2021-04-21] MEDS: DorzolamidE/Timolol 2%/0.5% Ophth Soln 10 ml Bottle EA EYE SCH ×2 (08:06→20:25)
[2021-04-21] MEDS: Clotrimazole 1 % Cream 30 GM TUBE TOP SCH ×2 (08:06→20:25)
[2021-04-21 09:16] LABS: #Eosinphils 0.1 thou/uL (0.0-0.7); #Lymphocytes 2.1 thou/uL (1.20-3.40); #Monocytes 0.8 thou/uL (0.11-0.59); #Neutrophils 11.1 thou/uL (1.40-6.50); %Basophils 0.1 % (0.0-1.0); %Eosinophils 0.6 % (0.0-10.0); %Lymphocytes 15.1 % (21.0-51.0); %Monocytes 5.7 % (0.0-10.0); %Neutrophils 78.5 % (42.0-75.0); Hemoglobin 10.8 g/dL (12.0-16.0); Mean Corpuscular HGB CONC 34.4 g/dL (32.0-36.0); Mean Corpuscular Volume 84.1 fL (78.0-98.0); Mean Platelet Volume 8.5 fL (7.4-10.4); Platelet Count 260 thou/uL (130-400); Red Blood Cell (RBC) Count 3.75 mill/uL (4.20-5.40); White Blood Cell (WBC) Count 14.1 thou/uL (4.8-10.8)
[2021-04-21 09:31] LABS: ALT (SGPT) 42 U/L (8-55); AST (SGOT) 44 U/L (5-34); Albumin 2.7 g/dL (3.4-4.8); Alkaline Phosphatase 67 U/L (40-110); Anion Gap 10 mmol/L (10-20); BUN (Urea Nitrogen) 13 mg/dL (9.8-20.1); Bilirubin, Total 0.6 mg/dL (0.2-1.2); Calc. Creatinine Clearance 118 mL/min (70-130); Calcium 8.6 mg/dL (7.8-10.44); Carbon Dioxide 25 mmol/L (23-31); Chloride 107 mmol/L (98-107); Globulin 3.5 g/dL (2.4-3.5); Glucose 136 mg/dL (83-110); Magnesium 1.8 mg/dL (1.6-2.6); Potassium 3.3 mmol/L (3.5-5.1); Protein, Total 6.2 g/dL (5.8-8.1); Sodium 139 mmol/L (136-145)
[2021-04-21 09:34] LABS: Phosphorus 2.7 mg/dL (2.3-4.7)
[2021-04-21] MEDS ORDERED: Potassium Chloride 20 MEQ TAB PO SCH (18:45)
[2021-04-21] MEDS ORDERED: Dextrose 5% in Water 1,000 ML IV PRN (19:25)
[2021-04-21] MEDS ORDERED: Dextrose 50% Abboject 50 ML SYRINGE SLOW IVP PRN (19:25)
[2021-04-21] MEDS ORDERED: HumaLOG 300 UNITS/3 ML VIAL SC PRN (19:25)
[2021-04-21] MEDS: Atorvastatin Calcium 20 MG TAB PO SCH (20:24)
[2021-04-21] MEDS: Latanoprost 0.005% Ophth Soln 2.5 ml Bottle EA EYE SCH (20:25)
[2021-04-21] MEDS: Gabapentin 300 MG CAP PO SCH (20:45)
[2021-04-22] MEDS: Potassium Bicarbonate/Cit Ac 20 MEQ TAB PER TUBE SCH ×3 (00:19→13:16)
[2021-04-22] MEDS: Cefepime 1 GM in Sodium Chloride 0.9% 100 ML IVPB SCH ×2 (02:40→15:21)
[2021-04-22] MEDS: metroNIDAZOLE 500 MG in Premix Bag 1 BAG IVPB SCH ×3 (05:19→22:16)
[2021-04-22 06:23] LABS: #Basophils 0.2 thou/uL (0.0-0.2); #Eosinphils 0.1 thou/uL (0.0-0.7); #Monocytes 0.8 thou/uL (0.11-0.59); #Neutrophils 11.7 thou/uL (1.40-6.50); %Basophils 1.2 % (0.0-1.0); %Eosinophils 0.7 % (0.0-10.0); %Lymphocytes 13.4 % (21.0-51.0); %Monocytes 5.4 % (0.0-10.0); %Neutrophils 79.3 % (42.0-75.0); Mean Corpuscular HGB CONC 34.1 g/dL (32.0-36.0); Mean Corpuscular Hemoglobin 28.7 pg (27.0-31.0); Mean Corpuscular Volume 84.2 fL (78.0-98.0); Mean Platelet Volume 8.7 fL (7.4-10.4); Platelet Count 283 thou/uL (130-400); RBC Distribution Width 14.3 % (11.5-14.5); Red Blood Cell (RBC) Count 3.84 mill/uL (4.20-5.40); White Blood Cell (WBC) Count 14.8 thou/uL (4.8-10.8)
[2021-04-22 06:43] LABS: ALT (SGPT) 42 U/L (8-55); AST (SGOT) 51 U/L (5-34); Albumin 2.9 g/dL (3.4-4.8); Alkaline Phosphatase 75 U/L (40-110); Anion Gap 12 mmol/L (10-20); BUN (Urea Nitrogen) 13 mg/dL (9.8-20.1); Bilirubin, Total 0.6 mg/dL (0.2-1.2); Calc. Creatinine Clearance 113 mL/min (70-130); Calcium 9.3 mg/dL (7.8-10.44); Carbon Dioxide 32 mmol/L (23-31); Chloride 99 mmol/L (98-107); Globulin 3.6 g/dL (2.4-3.5); Glucose 141 mg/dL (83-110); Potassium 4.6 mmol/L (3.5-5.1); Protein, Total 6.5 g/dL (5.8-8.1); Sodium 138 mmol/L (136-145)
[2021-04-22] MEDS: Saccharomyces boulardii 250 MG CAP PO SCH (08:38)
[2021-04-22] MEDS: Metoprolol Tartrate 25 MG TAB PO SCH ×2 (08:38→22:15)
[2021-04-22] MEDS: Cholecalciferol 1,000 UNITS (25 MCG) TAB PO SCH (08:39)
[2021-04-22] MEDS: Zinc Sulfate 220 MG CAP PO SCH (08:39)
[2021-04-22] MEDS: Spironolactone 25 MG TAB PO SCH (08:39)
[2021-04-22] MEDS: Pantoprazole 40 MG GRANULES PACKET PO SCH (08:39)
[2021-04-22] MEDS: Ascorbic Acid 500 mg Chewable Tablet PO SCH (08:39)
[2021-04-22] MEDS: Metolazone 5 MG TAB PO SCH (08:39)
[2021-04-22] MEDS: Enoxaparin Sodium 40 MG/0.4 ML SYRINGE SC SCH ×2 (08:40→09:08)
[2021-04-22] MEDS: DorzolamidE/Timolol 2%/0.5% Ophth Soln 10 ml Bottle EA EYE SCH ×2 (09:00→22:16)
[2021-04-22] MEDS: Clotrimazole 1 % Cream 30 GM TUBE TOP SCH ×2 (09:08→22:16)
[2021-04-22 16:54] LABS: Potassium 4.7 mmol/L (3.5-5.1)
[2021-04-22] MEDS: Gabapentin 300 MG CAP PO SCH (22:15)
[2021-04-22] MEDS: Atorvastatin Calcium 20 MG TAB PO SCH (22:15)
[2021-04-22] MEDS: Latanoprost 0.005% Ophth Soln 2.5 ml Bottle EA EYE SCH (22:16)
[2021-04-23] MEDS: Cefepime 1 GM in Sodium Chloride 0.9% 100 ML IVPB SCH ×2 (02:53→15:06)
[2021-04-23] MEDS: metroNIDAZOLE 500 MG in Premix Bag 1 BAG IVPB SCH ×3 (05:46→20:32)
[2021-04-23 06:30] LABS: Anion Gap 14 mmol/L (10-20); BUN (Urea Nitrogen) 15 mg/dL (9.8-20.1); Calc. Creatinine Clearance 113 mL/min (70-130); Calcium 9.6 mg/dL (7.8-10.44); Carbon Dioxide 32 mmol/L (23-31); Chloride 94 mmol/L (98-107); Glucose 126 mg/dL (83-110); Potassium 4.4 mmol/L (3.5-5.1); Sodium 136 mmol/L (136-145)
[2021-04-23] MEDS: Ascorbic Acid 500 mg Chewable Tablet PO SCH (08:10)
[2021-04-23] MEDS: Pantoprazole 40 MG GRANULES PACKET PO SCH (08:10)
[2021-04-23] MEDS: Saccharomyces boulardii 250 MG CAP PO SCH (08:10)
[2021-04-23] MEDS: Zinc Sulfate 220 MG CAP PO SCH (08:10)
[2021-04-23] MEDS: Metoprolol Tartrate 25 MG TAB PO SCH ×2 (08:11→20:31)
[2021-04-23] MEDS: Metolazone 5 MG TAB PO SCH (08:11)
[2021-04-23] MEDS: Enoxaparin Sodium 40 MG/0.4 ML SYRINGE SC SCH ×2 (08:11→20:34)
[2021-04-23] MEDS: Cholecalciferol 1,000 UNITS (25 MCG) TAB PO SCH (08:11)
[2021-04-23] MEDS: Spironolactone 25 MG TAB PO SCH (08:11)
[2021-04-23] MEDS: Clotrimazole 1 % Cream 30 GM TUBE TOP SCH ×2 (08:35→20:35)
[2021-04-23] MEDS: DorzolamidE/Timolol 2%/0.5% Ophth Soln 10 ml Bottle EA EYE SCH ×2 (08:37→20:35)
[2021-04-23] MEDS: Atorvastatin Calcium 20 MG TAB PO SCH (20:30)
[2021-04-23] MEDS: Gabapentin 300 MG CAP PO SCH (20:30)
[2021-04-23] MEDS: Latanoprost 0.005% Ophth Soln 2.5 ml Bottle EA EYE SCH (20:34)
[2021-04-24] MEDS: Cefepime 1 GM in Sodium Chloride 0.9% 100 ML IVPB SCH ×2 (05:03→16:06)
[2021-04-24] MEDS: metroNIDAZOLE 500 MG in Premix Bag 1 BAG IVPB SCH ×3 (07:25→21:34)
[2021-04-24] MEDS: Spironolactone 25 MG TAB PO SCH (09:22)
[2021-04-24] MEDS: Saccharomyces boulardii 250 MG CAP PO SCH (09:22)
[2021-04-24] MEDS: Metolazone 5 MG TAB PO SCH (09:22)
[2021-04-24] MEDS: Enoxaparin Sodium 40 MG/0.4 ML SYRINGE SC SCH ×2 (09:23→21:33)
[2021-04-24] MEDS: DorzolamidE/Timolol 2%/0.5% Ophth Soln 10 ml Bottle EA EYE SCH ×2 (09:23→21:37)
[2021-04-24] MEDS: Ascorbic Acid 500 mg Chewable Tablet PO SCH (09:23)
[2021-04-24] MEDS: Zinc Sulfate 220 MG CAP PO SCH (09:23)
[2021-04-24] MEDS: Cholecalciferol 1,000 UNITS (25 MCG) TAB PO SCH (09:23)
[2021-04-24] MEDS: Pantoprazole 40 MG GRANULES PACKET PO SCH (09:23)
[2021-04-24] MEDS: Clotrimazole 1 % Cream 30 GM TUBE TOP SCH ×2 (09:24→21:37)
[2021-04-24 09:29] LABS: #Eosinphils 0.1 thou/uL (0.0-0.7); #Lymphocytes 2.5 thou/uL (1.20-3.40); #Monocytes 1.2 thou/uL (0.11-0.59); #Neutrophils 12.4 thou/uL (1.40-6.50); %Basophils 0.3 % (0.0-1.0); %Eosinophils 0.5 % (0.0-10.0); %Lymphocytes 15.4 % (21.0-51.0); %Monocytes 7.6 % (0.0-10.0); %Neutrophils 76.2 % (42.0-75.0); Hemoglobin 11.3 g/dL (12.0-16.0); Mean Corpuscular HGB CONC 32.5 g/dL (32.0-36.0); Mean Corpuscular Hemoglobin 27.8 pg (27.0-31.0); Mean Corpuscular Volume 85.6 fL (78.0-98.0); Mean Platelet Volume 8.8 fL (7.4-10.4); Platelet Count 285 thou/uL (130-400); RBC Distribution Width 14.8 % (11.5-14.5); Red Blood Cell (RBC) Count 4.07 mill/uL (4.20-5.40); White Blood Cell (WBC) Count 16.3 thou/uL (4.8-10.8)
[2021-04-24 09:38] LABS: Anion Gap 13 mmol/L (10-20); BUN (Urea Nitrogen) 17 mg/dL (9.8-20.1); Calc. Creatinine Clearance 112 mL/min (70-130); Calcium 9.5 mg/dL (7.8-10.44); Carbon Dioxide 35 mmol/L (23-31); Chloride 92 mmol/L (98-107); Glucose 151 mg/dL (83-110); Sodium 136 mmol/L (136-145)
[2021-04-24] MEDS: Metoprolol Tartrate 25 MG TAB PO SCH ×2 (12:20→21:34)
[2021-04-24] MEDS: Gabapentin 300 MG CAP PO SCH (21:33)
[2021-04-24] MEDS: Atorvastatin Calcium 20 MG TAB PO SCH (21:33)
[2021-04-24] MEDS: Latanoprost 0.005% Ophth Soln 2.5 ml Bottle EA EYE SCH (21:36)
[2021-04-25] MEDS: Cefepime 1 GM in Sodium Chloride 0.9% 100 ML IVPB SCH ×2 (04:56→16:09)
[2021-04-25] MEDS: metroNIDAZOLE 500 MG in Premix Bag 1 BAG IVPB SCH ×3 (05:00→20:32)
[2021-04-25 06:26] LABS: #Eosinphils 0.1 thou/uL (0.0-0.7); #Lymphocytes 2.1 thou/uL (1.20-3.40); #Monocytes 1.2 thou/uL (0.11-0.59); #Neutrophils 11.2 thou/uL (1.40-6.50); %Basophils 0.2 % (0.0-1.0); %Eosinophils 0.7 % (0.0-10.0); %Lymphocytes 14.3 % (21.0-51.0); %Neutrophils 76.9 % (42.0-75.0); Hemoglobin 11.4 g/dL (12.0-16.0); Mean Corpuscular HGB CONC 33.8 g/dL (32.0-36.0); Mean Corpuscular Hemoglobin 29.4 pg (27.0-31.0); Mean Platelet Volume 8.7 fL (7.4-10.4); Platelet Count 292 thou/uL (130-400); RBC Distribution Width 15.7 % (11.5-14.5); Red Blood Cell (RBC) Count 3.88 mill/uL (4.20-5.40); White Blood Cell (WBC) Count 14.5 thou/uL (4.8-10.8)
[2021-04-25 06:55] LABS: Anion Gap 11 mmol/L (10-20); BUN (Urea Nitrogen) 18 mg/dL (9.8-20.1); Calc. Creatinine Clearance 108 mL/min (70-130); Calcium 9.7 mg/dL (7.8-10.44); Carbon Dioxide 35 mmol/L (23-31); Chloride 92 mmol/L (98-107); Glucose 131 mg/dL (83-110); Potassium 3.8 mmol/L (3.5-5.1); Sodium 134 mmol/L (136-145)
[2021-04-25] MEDS: Zinc Sulfate 220 MG CAP PO SCH (09:06)
[2021-04-25] MEDS: Pantoprazole 40 MG GRANULES PACKET PO SCH (09:06)
[2021-04-25] MEDS: Saccharomyces boulardii 250 MG CAP PO SCH (09:06)
[2021-04-25] MEDS: Cholecalciferol 1,000 UNITS (25 MCG) TAB PO SCH (09:06)
[2021-04-25] MEDS: Ascorbic Acid 500 mg Chewable Tablet PO SCH (09:06)
[2021-04-25] MEDS: DorzolamidE/Timolol 2%/0.5% Ophth Soln 10 ml Bottle EA EYE SCH ×2 (09:07→22:24)
[2021-04-25] MEDS: Clotrimazole 1 % Cream 30 GM TUBE TOP SCH ×2 (09:07→22:24)
[2021-04-25] MEDS: Enoxaparin Sodium 40 MG/0.4 ML SYRINGE SC SCH ×2 (09:07→20:32)
[2021-04-25] MEDS: Metoprolol Tartrate 25 MG TAB PO SCH ×2 (09:11→20:31)
[2021-04-25] MEDS: Spironolactone 25 MG TAB PO SCH (09:11)
[2021-04-25] MEDS: Atorvastatin Calcium 20 MG TAB PO SCH (20:31)
[2021-04-25] MEDS: Gabapentin 300 MG CAP PO SCH (20:31)
[2021-04-25] MEDS: Carbamide Peroxide 6.5% Otic Drops 15 ml Bottle EA EAR SCH (22:23)
[2021-04-25] MEDS: Latanoprost 0.005% Ophth Soln 2.5 ml Bottle EA EYE SCH (22:25)
[2021-04-26] MEDS: Cefepime 1 GM in Sodium Chloride 0.9% 100 ML IVPB SCH ×2 (05:05→15:57)
[2021-04-26] MEDS: metroNIDAZOLE 500 MG in Premix Bag 1 BAG IVPB SCH ×3 (06:23→21:15)
[2021-04-26] MEDS: Zinc Sulfate 220 MG CAP PO SCH (07:56)
[2021-04-26] MEDS: Spironolactone 25 MG TAB PO SCH (07:56)
[2021-04-26] MEDS: Pantoprazole 40 MG GRANULES PACKET PO SCH (07:56)
[2021-04-26] MEDS: Metoprolol Tartrate 25 MG TAB PO SCH ×2 (07:57→21:15)
[2021-04-26] MEDS: Ascorbic Acid 500 mg Chewable Tablet PO SCH (07:58)
[2021-04-26] MEDS: Cholecalciferol 1,000 UNITS (25 MCG) TAB PO SCH (07:58)
[2021-04-26] MEDS: Saccharomyces boulardii 250 MG CAP PO SCH (07:58)
[2021-04-26] MEDS: Enoxaparin Sodium 40 MG/0.4 ML SYRINGE SC SCH ×2 (08:08→21:15)
[2021-04-26] MEDS: Clotrimazole 1 % Cream 30 GM TUBE TOP SCH ×2 (08:08→21:17)
[2021-04-26] MEDS: DorzolamidE/Timolol 2%/0.5% Ophth Soln 10 ml Bottle EA EYE SCH ×2 (08:08→21:16)
[2021-04-26] MEDS: Carbamide Peroxide 6.5% Otic Drops 15 ml Bottle EA EAR SCH ×2 (08:10→21:17)
[2021-04-26] MEDS ORDERED: Meropenem 1 GM in Sodium Chloride 0.9% 100 ML IVPB SCH (16:15)
[2021-04-26] MEDS ORDERED: MEROPENEM 1 GM/50 ML 1 GM in Premix Bag 1 BAG IVPB SCH (16:30)
[2021-04-26] MEDS: Atorvastatin Calcium 20 MG TAB PO SCH (21:14)
[2021-04-26] MEDS: Gabapentin 300 MG CAP PO SCH (21:15)
[2021-04-26] MEDS: Latanoprost 0.005% Ophth Soln 2.5 ml Bottle EA EYE SCH (21:16)
[2021-04-27] MEDS: MEROPENEM 1 GM/50 ML 1 GM in Premix Bag 1 BAG IVPB SCH ×3 (00:22→22:01)
[2021-04-27] MEDS: metroNIDAZOLE 500 MG in Premix Bag 1 BAG IVPB SCH ×3 (06:14→21:57)
[2021-04-27] MEDS: Metoprolol Tartrate 25 MG TAB PO SCH (08:35)
[2021-04-27 08:58] LABS: #Basophils 0.1 thou/uL (0.0-0.2); #Eosinphils 0.1 thou/uL (0.0-0.7); #Lymphocytes 2.2 thou/uL (1.20-3.40); #Monocytes 1.4 thou/uL (0.11-0.59); #Neutrophils 9.6 thou/uL (1.40-6.50); %Basophils 0.4 % (0.0-1.0); %Eosinophils 0.5 % (0.0-10.0); %Lymphocytes 16.8 % (21.0-51.0); %Monocytes 10.5 % (0.0-10.0); %Neutrophils 71.8 % (42.0-75.0); Mean Corpuscular HGB CONC 30.2 g/dL (32.0-36.0); Mean Corpuscular Hemoglobin 26.7 pg (27.0-31.0); Mean Corpuscular Volume 88.5 fL (78.0-98.0); Platelet Count 271 thou/uL (130-400); RBC Distribution Width 15.9 % (11.5-14.5); Red Blood Cell (RBC) Count 4.12 mill/uL (4.20-5.40); White Blood Cell (WBC) Count 13.4 thou/uL (4.8-10.8)
[2021-04-27 09:13] LABS: Anion Gap 12 mmol/L (10-20); BUN (Urea Nitrogen) 17 mg/dL (9.8-20.1); Calc. Creatinine Clearance 124 mL/min (70-130); Calcium 9.4 mg/dL (7.8-10.44); Carbon Dioxide 29 mmol/L (23-31); Chloride 98 mmol/L (98-107); Glucose 102 mg/dL (83-110); Potassium 4.3 mmol/L (3.5-5.1); Sodium 135 mmol/L (136-145)
[2021-04-27] MEDS ORDERED: Fentanyl 100 MCG/2 ML VIAL ONE (10:16)
[2021-04-27] MEDS ORDERED: Glycopyrrolate 0.2 MG/ML 5 ML SYRINGE ONE (10:20)
[2021-04-27] MEDS ORDERED: Ondansetron PF 4 MG/2 ML Vial ONE (10:20)
[2021-04-27] MEDS ORDERED: PROPOFOL 200 MG/20 ML VIAL ONE (10:20)
[2021-04-27] MEDS ORDERED: Dexamethasone 20 MG/5 ML VIAL ONE (10:20)
[2021-04-27] MEDS ORDERED: Succinylcholine 200 MG/10 ml SYRINGE FS ONE (10:20)
[2021-04-27] MEDS ORDERED: Lidocaine 1% PF 5 ML VIAL ONE (10:20)
[2021-04-27] MEDS ORDERED: Promethazine HCl 25 MG/ML VIAL IM PRN (11:26)
[2021-04-27] MEDS ORDERED: Promethazine HCl 25 MG/ML VIAL IVPB PRN (11:26)
[2021-04-27] MEDS ORDERED: Ondansetron HCl/PF 4 MG/2 ML Vial IVP PRN (11:26)
[2021-04-27] MEDS: Cholecalciferol 1,000 UNITS (25 MCG) TAB PO SCH (11:39)
[2021-04-27] MEDS: Ascorbic Acid 500 mg Chewable Tablet PO SCH (11:40)
[2021-04-27] MEDS: Zinc Sulfate 220 MG CAP PO SCH (11:40)
[2021-04-27] MEDS: Pantoprazole 40 MG GRANULES PACKET PO SCH (11:40)
[2021-04-27] MEDS: Saccharomyces boulardii 250 MG CAP PO SCH (11:40)
[2021-04-27] MEDS: Spironolactone 25 MG TAB PO SCH (11:48)
[2021-04-27] MEDS: Carbamide Peroxide 6.5% Otic Drops 15 ml Bottle EA EAR SCH ×2 (15:14→21:51)
[2021-04-27] MEDS: Clotrimazole 1 % Cream 30 GM TUBE TOP SCH ×2 (15:14→21:56)
[2021-04-27] MEDS: DorzolamidE/Timolol 2%/0.5% Ophth Soln 10 ml Bottle EA EYE SCH ×2 (15:14→21:56)
[2021-04-27] MEDS: Latanoprost 0.005% Ophth Soln 2.5 ml Bottle EA EYE SCH (21:57)
[2021-04-28] MEDS: Gabapentin 300 MG CAP PO SCH ×2 (00:15→21:24)
[2021-04-28] MEDS: Atorvastatin Calcium 20 MG TAB PO SCH ×2 (00:15→21:22)
[2021-04-28] MEDS: Metoprolol Tartrate 25 MG TAB PO SCH ×3 (00:15→21:25)
[2021-04-28] MEDS: MEROPENEM 1 GM/50 ML 1 GM in Premix Bag 1 BAG IVPB SCH ×3 (05:03→18:21)
[2021-04-28] MEDS: metroNIDAZOLE 500 MG in Premix Bag 1 BAG IVPB SCH ×3 (05:39→21:26)
[2021-04-28] MEDS: Zinc Sulfate 220 MG CAP PO SCH (09:58)
[2021-04-28] MEDS: Saccharomyces boulardii 250 MG CAP PO SCH (09:58)
[2021-04-28] MEDS: Cholecalciferol 1,000 UNITS (25 MCG) TAB PO SCH (09:58)
[2021-04-28] MEDS: Ascorbic Acid 500 mg Chewable Tablet PO SCH (09:58)
[2021-04-28] MEDS: Spironolactone 25 MG TAB PO SCH (09:59)
[2021-04-28] MEDS: Carbamide Peroxide 6.5% Otic Drops 15 ml Bottle EA EAR SCH ×2 (10:00→21:23)
[2021-04-28] MEDS: Clotrimazole 1 % Cream 30 GM TUBE TOP SCH ×2 (10:00→21:23)
[2021-04-28] MEDS: DorzolamidE/Timolol 2%/0.5% Ophth Soln 10 ml Bottle EA EYE SCH ×2 (10:02→21:23)
[2021-04-28] MEDS: Pantoprazole 40 MG GRANULES PACKET PO SCH (10:02)
[2021-04-28] MEDS: Enoxaparin Sodium 40 MG/0.4 ML SYRINGE SC SCH (21:24)
[2021-04-28] MEDS: Latanoprost 0.005% Ophth Soln 2.5 ml Bottle EA EYE SCH (21:25)
[2021-04-29] MEDS: MEROPENEM 1 GM/50 ML 1 GM in Premix Bag 1 BAG IVPB SCH ×3 (02:49→18:04)
[2021-04-29 06:03] LABS: #Basophils 0.1 thou/uL (0.0-0.2); #Eosinphils 0.1 thou/uL (0.0-0.7); #Lymphocytes 2.6 thou/uL (1.20-3.40); #Monocytes 1.3 thou/uL (0.11-0.59); #Neutrophils 10.1 thou/uL (1.40-6.50); %Basophils 0.4 % (0.0-1.0); %Eosinophils 0.5 % (0.0-10.0); %Lymphocytes 18.6 % (21.0-51.0); %Neutrophils 71.6 % (42.0-75.0); Hemoglobin 10.4 g/dL (12.0-16.0); Mean Corpuscular HGB CONC 31.1 g/dL (32.0-36.0); Mean Corpuscular Hemoglobin 27.3 pg (27.0-31.0); Mean Corpuscular Volume 87.7 fL (78.0-98.0); Mean Platelet Volume 8.3 fL (7.4-10.4); Platelet Count 321 thou/uL (130-400); RBC Distribution Width 15.4 % (11.5-14.5); Red Blood Cell (RBC) Count 3.82 mill/uL (4.20-5.40); White Blood Cell (WBC) Count 14.1 thou/uL (4.8-10.8)
[2021-04-29] MEDS: metroNIDAZOLE 500 MG in Premix Bag 1 BAG IVPB SCH ×3 (06:06→21:08)
[2021-04-29 06:14] LABS: Anion Gap 10 mmol/L (10-20); BUN (Urea Nitrogen) 24 mg/dL (9.8-20.1); Calc. Creatinine Clearance 126 mL/min (70-130); Calcium 8.8 mg/dL (7.8-10.44); Carbon Dioxide 31 mmol/L (23-31); Chloride 102 mmol/L (98-107); Glucose 127 mg/dL (83-110); Potassium 4.1 mmol/L (3.5-5.1); Sodium 139 mmol/L (136-145)
[2021-04-29] MEDS: Ascorbic Acid 500 mg Chewable Tablet PO SCH (09:41)
[2021-04-29] MEDS: Cholecalciferol 1,000 UNITS (25 MCG) TAB PO SCH (09:41)
[2021-04-29] MEDS: Pantoprazole 40 MG GRANULES PACKET PO SCH (09:41)
[2021-04-29] MEDS: Zinc Sulfate 220 MG CAP PO SCH (09:41)
[2021-04-29] MEDS: Saccharomyces boulardii 250 MG CAP PO SCH (09:41)
[2021-04-29] MEDS: Spironolactone 25 MG TAB PO SCH (09:41)
[2021-04-29] MEDS: Metoprolol Tartrate 25 MG TAB PO SCH ×2 (09:42→20:33)
[2021-04-29] MEDS: DorzolamidE/Timolol 2%/0.5% Ophth Soln 10 ml Bottle EA EYE SCH ×2 (09:43→20:35)
[2021-04-29] MEDS: Clotrimazole 1 % Cream 30 GM TUBE TOP SCH ×2 (09:43→20:37)
[2021-04-29] MEDS: Enoxaparin Sodium 40 MG/0.4 ML SYRINGE SC SCH ×2 (10:42→20:39)
[2021-04-29] MEDS: Atorvastatin Calcium 20 MG TAB PO SCH (20:33)
[2021-04-29] MEDS: Gabapentin 300 MG CAP PO SCH (20:33)
[2021-04-29] MEDS: Latanoprost 0.005% Ophth Soln 2.5 ml Bottle EA EYE SCH (20:36)
[2021-04-29] MEDS: Acetaminophen 325 MG TAB PO PRN (20:45)
[2021-04-30] MEDS: MEROPENEM 1 GM/50 ML 1 GM in Premix Bag 1 BAG IVPB SCH ×2 (02:17→11:08)
[2021-04-30] MEDS: metroNIDAZOLE 500 MG in Premix Bag 1 BAG IVPB SCH ×3 (05:16→21:03)
[2021-04-30 06:31] LABS: #Basophils 0.1 thou/uL (0.0-0.2); #Eosinphils 0.1 thou/uL (0.0-0.7); #Lymphocytes 2.8 thou/uL (1.20-3.40); #Monocytes 1.1 thou/uL (0.11-0.59); #Neutrophils 7.9 thou/uL (1.40-6.50); %Basophils 0.7 % (0.0-1.0); %Eosinophils 0.9 % (0.0-10.0); %Lymphocytes 23.5 % (21.0-51.0); %Monocytes 9.2 % (0.0-10.0); %Neutrophils 65.8 % (42.0-75.0); Hemoglobin 10.4 g/dL (12.0-16.0); Mean Corpuscular HGB CONC 31.1 g/dL (32.0-36.0); Mean Corpuscular Hemoglobin 27.5 pg (27.0-31.0); Mean Corpuscular Volume 88.2 fL (78.0-98.0); Mean Platelet Volume 7.8 fL (7.4-10.4); Platelet Count 332 thou/uL (130-400); RBC Distribution Width 15.4 % (11.5-14.5); Red Blood Cell (RBC) Count 3.78 mill/uL (4.20-5.40); White Blood Cell (WBC) Count 12.1 thou/uL (4.8-10.8)
[2021-04-30 06:43] LABS: Anion Gap 9 mmol/L (10-20); BUN (Urea Nitrogen) 18 mg/dL (9.8-20.1); Calc. Creatinine Clearance 137 mL/min (70-130); Calcium 8.9 mg/dL (7.8-10.44); Carbon Dioxide 32 mmol/L (23-31); Chloride 102 mmol/L (98-107); Glucose 114 mg/dL (83-110); Potassium 4.4 mmol/L (3.5-5.1); Sodium 139 mmol/L (136-145)
[2021-04-30] MEDS: Spironolactone 25 MG TAB PO SCH (09:47)
[2021-04-30] MEDS: Metoprolol Tartrate 25 MG TAB PO SCH ×2 (09:47→21:02)
[2021-04-30] MEDS: Ascorbic Acid 500 mg Chewable Tablet PO SCH (09:47)
[2021-04-30] MEDS: Saccharomyces boulardii 250 MG CAP PO SCH (09:47)
[2021-04-30] MEDS: Pantoprazole 40 MG GRANULES PACKET PO SCH (09:47)
[2021-04-30] MEDS: Cholecalciferol 1,000 UNITS (25 MCG) TAB PO SCH (09:47)
[2021-04-30] MEDS: Enoxaparin Sodium 40 MG/0.4 ML SYRINGE SC SCH ×2 (09:48→21:59)
[2021-04-30] MEDS: Zinc Sulfate 220 MG CAP PO SCH (09:48)
[2021-04-30] MEDS: DorzolamidE/Timolol 2%/0.5% Ophth Soln 10 ml Bottle EA EYE SCH ×2 (09:48→21:02)
[2021-04-30] MEDS: Clotrimazole 1 % Cream 30 GM TUBE TOP SCH ×2 (09:48→21:03)
[2021-04-30] MEDS: Atorvastatin Calcium 20 MG TAB PO SCH (20:59)
[2021-04-30] MEDS: Ciprofloxacin 500 MG TAB PO SCH (20:59)
[2021-04-30] MEDS: Gabapentin 300 MG CAP PO SCH (21:01)
[2021-04-30] MEDS: Latanoprost 0.005% Ophth Soln 2.5 ml Bottle EA EYE SCH (21:03)
[2021-05-01] MEDS: Acetaminophen 325 MG TAB PO PRN (05:04)
[2021-05-01] MEDS: metroNIDAZOLE 500 MG in Premix Bag 1 BAG IVPB SCH ×3 (05:05→21:23)
[2021-05-01] MEDS: Ciprofloxacin 500 MG TAB PO SCH ×2 (05:05→21:24)
[2021-05-01 06:58] LABS: #Eosinphils 0.1 thou/uL (0.0-0.7); #Lymphocytes 2.7 thou/uL (1.20-3.40); #Monocytes 1.1 thou/uL (0.11-0.59); %Basophils 0.4 % (0.0-1.0); %Eosinophils 0.6 % (0.0-10.0); %Lymphocytes 22.6 % (21.0-51.0); %Monocytes 9.2 % (0.0-10.0); %Neutrophils 67.3 % (42.0-75.0); Hemoglobin 10.6 g/dL (12.0-16.0); Mean Corpuscular Hemoglobin 28.3 pg (27.0-31.0); Mean Corpuscular Volume 88.4 fL (78.0-98.0); Mean Platelet Volume 7.9 fL (7.4-10.4); Platelet Count 303 thou/uL (130-400); RBC Distribution Width 15.4 % (11.5-14.5); Red Blood Cell (RBC) Count 3.74 mill/uL (4.20-5.40); White Blood Cell (WBC) Count 11.9 thou/uL (4.8-10.8)
[2021-05-01 07:17] LABS: Anion Gap 10 mmol/L (10-20); BUN (Urea Nitrogen) 16 mg/dL (9.8-20.1); Calc. Creatinine Clearance 135 mL/min (70-130); Calcium 8.7 mg/dL (7.8-10.44); Carbon Dioxide 27 mmol/L (23-31); Chloride 105 mmol/L (98-107); Glucose 128 mg/dL (83-110); Potassium 4.3 mmol/L (3.5-5.1); Sodium 138 mmol/L (136-145)
[2021-05-01] MEDS ORDERED: Enoxaparin Sodium 60 MG/0.6 ML SYRINGE SC SCH (09:00)
[2021-05-01] MEDS: Zinc Sulfate 220 MG CAP PO SCH (09:29)
[2021-05-01] MEDS: Cholecalciferol 1,000 UNITS (25 MCG) TAB PO SCH (09:29)
[2021-05-01] MEDS: Spironolactone 25 MG TAB PO SCH (09:29)
[2021-05-01] MEDS: Metoprolol Tartrate 25 MG TAB PO SCH ×2 (09:29→21:24)
[2021-05-01] MEDS: Ascorbic Acid 500 mg Chewable Tablet PO SCH (09:29)
[2021-05-01] MEDS: Saccharomyces boulardii 250 MG CAP PO SCH (09:29)
[2021-05-01] MEDS: Pantoprazole 40 MG GRANULES PACKET PO SCH (09:30)
[2021-05-01] MEDS: Enoxaparin Sodium 40 MG/0.4 ML SYRINGE SC SCH ×2 (09:31→21:23)
[2021-05-01] MEDS: Clotrimazole 1 % Cream 30 GM TUBE TOP SCH ×2 (09:44→21:25)
[2021-05-01] MEDS: DorzolamidE/Timolol 2%/0.5% Ophth Soln 10 ml Bottle EA EYE SCH ×2 (09:44→21:25)
[2021-05-01] MEDS: Atorvastatin Calcium 20 MG TAB PO SCH (21:24)
[2021-05-01] MEDS: Gabapentin 300 MG CAP PO SCH (21:25)
[2021-05-01] MEDS: Latanoprost 0.005% Ophth Soln 2.5 ml Bottle EA EYE SCH (21:25)
[2021-05-02] MEDS: metroNIDAZOLE 500 MG in Premix Bag 1 BAG IVPB SCH ×2 (06:05→14:07)
[2021-05-02] MEDS: Ciprofloxacin 500 MG TAB PO SCH (06:05)
[2021-05-02 06:07] LABS: #Eosinphils 0.1 thou/uL (0.0-0.7); #Lymphocytes 2.7 thou/uL (1.20-3.40); #Monocytes 0.9 thou/uL (0.11-0.59); %Basophils 0.3 % (0.0-1.0); %Eosinophils 1.1 % (0.0-10.0); %Lymphocytes 25.4 % (21.0-51.0); %Monocytes 8.5 % (0.0-10.0); %Neutrophils 64.7 % (42.0-75.0); Hemoglobin 10.3 g/dL (12.0-16.0); Mean Corpuscular HGB CONC 31.9 g/dL (32.0-36.0); Mean Corpuscular Hemoglobin 28.4 pg (27.0-31.0); Mean Corpuscular Volume 89.2 fL (78.0-98.0); Platelet Count 343 thou/uL (130-400); RBC Distribution Width 15.6 % (11.5-14.5); Red Blood Cell (RBC) Count 3.64 mill/uL (4.20-5.40); White Blood Cell (WBC) Count 10.8 thou/uL (4.8-10.8)
[2021-05-02 06:29] LABS: Anion Gap 11 mmol/L (10-20); BUN (Urea Nitrogen) 13 mg/dL (9.8-20.1); Calc. Creatinine Clearance 145 mL/min (70-130); Calcium 8.7 mg/dL (7.8-10.44); Carbon Dioxide 25 mmol/L (23-31); Chloride 106 mmol/L (98-107); Glucose 95 mg/dL (83-110); Potassium 4.6 mmol/L (3.5-5.1); Sodium 137 mmol/L (136-145)
[2021-05-02 08:18] VITALS: BP 126/77; TEMP 99.1
[2021-05-02] MEDS: Cholecalciferol 1,000 UNITS (25 MCG) TAB PO SCH (10:25)
[2021-05-02] MEDS: Ascorbic Acid 500 mg Chewable Tablet PO SCH (10:25)
[2021-05-02] MEDS: Zinc Sulfate 220 MG CAP PO SCH (10:25)
[2021-05-02] MEDS: Spironolactone 25 MG TAB PO SCH (10:25)
[2021-05-02] MEDS: Saccharomyces boulardii 250 MG CAP PO SCH (10:25)
[2021-05-02] MEDS: Metoprolol Tartrate 25 MG TAB PO SCH (10:26)
[2021-05-02] MEDS: Pantoprazole 40 MG GRANULES PACKET PO SCH (10:26)
[2021-05-02] MEDS: Enoxaparin Sodium 40 MG/0.4 ML SYRINGE SC SCH (10:26)
[2021-05-02] MEDS: DorzolamidE/Timolol 2%/0.5% Ophth Soln 10 ml Bottle EA EYE SCH (10:45)
[2021-05-02] MEDS: Clotrimazole 1 % Cream 30 GM TUBE TOP SCH (10:46)
== END 2021-05-02 18:07 | DRG 871 ==
LOC: ERS 10:08 → ERHOLD 13:10 → 2SE 04-12 13:53 → T4-A 04-17 21:19
PROVIDERS: ADMIT Internal Medicine; ATTEND Hospitalist
PROC: 8E0ZXY6 Isolation (ICD-10-PCS; 2021-04-11)
PROC: 0DH67UZ Insertion of Feeding Device into Stomach, Via Natural or Artificial Opening (ICD-10-PCS; principal; 2021-04-19)
PROC: 0D758ZZ Dilation of Esophagus, Via Natural or Artificial Opening Endoscopic (ICD-10-PCS; 2021-04-27)
PROC: 0DH63UZ Insertion of Feeding Device into Stomach, Percutaneous Approach (ICD-10-PCS; 2021-04-27)
DX: A41.9 Sepsis, unspecified organism (principal); U07.1 COVID-19; J12.82 Pneumonia due to coronavirus disease 2019; G93.41 Metabolic encephalopathy; E87.0 Hyperosmolality and hypernatremia; M62.82 Rhabdomyolysis; L02.31 Cutaneous abscess of buttock; L03.317 Cellulitis of buttock; N39.0 Urinary tract infection, site not specified; N17.9 Acute kidney failure, unspecified; R65.20 Severe sepsis without septic shock; B35.4 Tinea corporis; M60.9 Myositis, unspecified; H40.9 Unspecified glaucoma; F17.220 Nicotine dependence, chewing tobacco, uncomplicated; E87.8 Other disorders of electrolyte and fluid balance, not elsewhere classified; K80.20 Calculus of gallbladder without cholecystitis without obstruction; R79.89 Other specified abnormal findings of blood chemistry; E66.01 Morbid (severe) obesity due to excess calories; E87.6 Hypokalemia; E11.22 Type 2 diabetes mellitus with diabetic chronic kidney disease; D63.1 Anemia in chronic kidney disease; I12.9 Hypertensive chronic kidney disease with stage 1 through stage 4 chronic kidney disease, or unspecified chronic kidney disease; N18.9 Chronic kidney disease, unspecified; E88.09 Other disorders of plasma-protein metabolism, not elsewhere classified; H91.90 Unspecified hearing loss, unspecified ear; R13.12 Dysphagia, oropharyngeal phase; E86.9 Volume depletion, unspecified; K22.2 Esophageal obstruction; L98.419 Non-pressure chronic ulcer of buttock with unspecified severity; Z68.42 Body mass index [BMI] 45.0-49.9, adult; Z91.81 History of falling; Z88.8 Allergy status to other drugs, medicaments and biological substances
CPT/HCPCS: 36415; 36416; 70450; 70551; 71045; 71260; 72125; 74177; 80048; 80053; 80202; 81001; 81003; 81015; 82550; 82553; 82728; 83605; 83690; 83735; 84100; 84443; 84484; 85025; 85379; 86140; 87040; 87086; 93005; 96365; 96367; J0692; J1100; J1200; J1650; J1940; J2060; J2185; J2405; J2704; J3010; J3370; J3490; J7050; J7070; P9047; Q9967; U0002; U0005